=== PATIENT | female | born 1985 | race Native Hawaiian/Other Pacific Islander ===

== ENCOUNTER 2017-01-27 19:12 | Emergency (ER) | payer OTHER ==
[2017-01-27 19:20] VITALS: TEMP 97.9
[2017-01-27] MEDS ORDERED: Sodium Chloride 0.9% 500 ML IV STA (19:33)
[2017-01-27 20:00] LABS: ABG ALLEN TEST YES; ARTERIAL BLOOD GAS HCO3 23.7 mmol/L (21-28); ARTERIAL BLOOD GAS PO2 82 mm/Hg (80-100)
[2017-01-27 20:05] LABS: ALB/GLOB RATIO 1.2 (1.0-2.1); ALKALINE PHOSPHATASE 91 U/L (38-126); ALT/SGPT 41 U/L (9-52); AST/SGOT 28 U/L (14-36); BILIRUBIN,TOTAL 0.4 mg/dl (0.2-1.3); BLOOD UREA NITROGEN 8 mg/dl (7-17); CALCIUM 8.9 mg/dL (8.4-10.2); CARBON DIOXIDE 25 mmol/L (22-30); CHLORIDE 107 mmol/L (98-107); GFR AFRICAN-AMERICAN > 60; GLUCOSE,RANDOM 93 mg/dL (65-105); POTASSIUM 4.3 MMOL/L (3.6-5.0); SODIUM 142 mmol/l (132-148); TOTAL PROTEIN 7.5 G/DL (6.3-8.2)
--- NOTE | 2017-01-27 20:10 | ED PDOC ---
HPI: Chest Pain Time Seen by Provider: 01/27/17 19:23 Chief Complaint (Nursing): Chest Pain Chief Complaint (Provider): Chest Pain History Per: Patient History/Exam Limitations: no limitations Onset/Duration Of Symptoms: Hrs (since this morning), Waxing/Waning (throughout the day) Current Symptoms Are (Timing): Still Present Quality: "Pain" Associated Symptoms: denies: Nausea, Diaphoresis, Syncope Exacerbating Factors: Turning Additional Complaint(s): 31 year old female presents to ED with complaints of left sided chest pain since this morning and has a past medical history of pulmonary embolism and DVT in 2013. Notes that pain radiates to the back and waxes/wanes throughout the day. States that she has had severe body aches when waking up that wanes during the day and returns at night for a few days. Notes that today was the first day of chest pain. (-) SOB, cough, congestion, abdominal pain, calf swelling, leg pain, or edema. Confirms taking Nexium and Naproxen earlier today with no relief. Also notes having right leg pain a few weeks go in the same leg that had DVT. No numbness, tingles. Of note: Patient's pulse ox level is 100 in ED room. PCP: None - Risk Factors PE Risk Factors: Pos: Previous DVT, Previous PE Past Medical History Reviewed: Historical Data, Nursing Documentation, Vital Signs Vital Signs: Last Vital Signs Temp 97.9 F 01/27/17 19:16 Pulse 66 01/27/17 22:53 Resp 16 01/27/17 19:16 BP 143/99 H 01/27/17 19:16 Pulse Ox 92 L 01/27/17 22:53 - Medical History PMH: Deep Vein Thrombosis, Pulmonary Embolism (May 2014) Denies: No Chronic Diseases - Surgical History Surgical History: No Surg Hx - Family History Family History: States: Unknown Family Hx - Living Arrangements Living Arrangements: With Family - Social History Current smoker - smoking cessation education provided: No Ex-Smoker (has not smoked in the last 12 months): No Alcohol: None Drugs: Denies - Allergies Allergies/Adverse Reactions: Allergies Allergy/AdvReac Type Severity Reaction Status Date / Time No Known Allergies Allergy Verified 01/27/17 19:16 Curb-65 Severity Score - CURB-65 Severity Score Confusion: No Bun >19mg/dl (>7mmol/L): No Respiratory Rate greater than/equal to 30: No Systolic BP <90 or Diastolic BP less than/equal 60mmHg: No Age >64: No Curb-65 Score: 0 Percentage 30-day mortality: 0.6% Review of Systems ROS Statement: Except As Marked, All Systems Reviewed And Found Negative ENT: Negative for: Nose Congestion Cardiovascular: Positive for: Chest Pain (left sided) Respiratory: Negative for: Cough, Shortness of Breath Gastrointestinal: Negative for: Abdominal Pain Musculoskeletal: Positive for: Back Pain (chest pain radiated to back pain), Leg Pain (gone now) Physical Exam - Reviewed Nursing Documentation Reviewed: Yes Vital Signs Reviewed: Yes - Physical Exam Appears: Positive for: Non-toxic, No Acute Distress Head Exam: Positive for: ATRAUMATIC Skin: Positive for: Normal Color, Warm, Dry Eye Exam: Positive for: Normal appearance, EOMI, PERRL ENT: Positive for: Normal ENT Inspection. Negative for: Nasal Congestion, Pharyngeal Erythema, Tonsillar Exudate Neck: Positive for: Normal, Painless ROM, Supple Cardiovascular/Chest: Positive for: Regular Rate, Rhythm. Negative for: Murmur Respiratory: Positive for: Normal Breath Sounds. Negative for: Respiratory Distress (Patient's Pulse Ox is 100 in ED room) Pulses-Dorsalis Pedis (L): 2+ Pulses-Dorsalis Pedis (R): 2+ Gastrointestinal/Abdominal: Positive for: Soft. Negative for: Normal Exam, Tenderness Back: Positive for: Normal Inspection. Negative for: L CVA Tenderness, R CVA Tenderness Extremity: Positive for: Normal ROM. Negative for: Tenderness, Calf Tenderness (no leg pain or calf swelling), Deformity Neurologic/Psych: Positive for: Alert, Oriented. Negative for: Motor/Sensory Deficits - Laboratory Results Result Diagrams: 01/27/17 19:30 01/27/17 19:30 Interpretation Of Abn Labs: no acute - ECG ECG Rhythm: Positive for: Normal QRS, Normal ST Segment, Sinus Rhythm. Negative for: ST/T Changes Rate: 66 O2 Sat by Pulse Oximetry: 92 - Radiology X-Ray: Interpreted by Me, Viewed By Me X-Ray Interpretation: No Acute Disease - CT Scan/US ct Other Rad Studies (CT/US): Read By Radiologist Other Rad Interpretation: no pe; atelectasis RUL - Progress ED Course And Treament: 2311: Stable. AAOx3. Pain still present in back, feels stiffness there. Will give valium in ER and dc. Pt. to fu with clinic or get pcp to see in next few days. Will have a [facility] follow to help identify pt. status and get further testing/imaging/management/specialist evaluation as needed. Medical Decision Making Medical Decision Makin Initial impression: chest pain evaluation Initial plan: * ABG * CT ANGIO CHEST * EKG * Labs * Trop I * PTT/PT * CXR * NS IV * US DUPLEX LOWER EXTRM VEIN BILAT 2109 US FINDINGS: Right deep veins: Unremarkable. No DVT in the right common femoral, femoral, proximal deep femoral or popliteal veins. The veins are compressible with normal color flow and augmentation. Right superficial veins: Unremarkable. No thrombus in the visualized right greater saphenous vein. Left deep veins: Unremarkable. No DVT in the left common femoral, femoral, proximal deep femoral or popliteal veins. The veins are compressible with normal color flow and augmentation. Left superficial veins: Unremarkable. No thrombus in the visualized left greater saphenous vein. Soft tissues: No acute findings. No popliteal cyst. IMPRESSION: Negative bilateral lower extremity venous duplex exam without evidence of deep venous thrombosis 2251 CT FINDINGS Pulmonary arteries: The main pulmonary artery measures 23 mm. No pulmonary embolism is identified. Aorta: The ascending thoracic aorta measures 27 mm. No gross or obvious dissection is identified distal to the mid arch. Artifact and image degradation precludes detailed evaluation of the ascending thoracic aorta. Lungs: Minimal atelectasis and possible minimal infiltrate in the posterior right upper lobe with slight retraction of the adjacent superior right major fissure. No mass. Pleural space: Unremarkable. No significant effusion. No pneumothorax. Heart: Unremarkable. No cardiomegaly. No significant pericardial effusion. No evidence of RV dysfunction. Mediastinum: Induration of anterior mediastinum consistent with some residual thymic tissue. Bones/joints: No acute fracture. No dislocation. Soft tissues: Unremarkable. Lymph nodes: Unremarkable. No enlarged lymph nodes. Gallbladder and bile ducts: The gallbladder is contracted with no stones. IMPRESSION: 1. Minimal atelectasis and possible minimal infiltrate in the posterior right upper lobe. 2. Otherwise negative CTA chest. No pulmonary embolism is identified. Scribe Attestation: Documented by Florencia Goldberg acting as a scribe for Leonidas Sandoval MD. MD Good Attestation: All medical record entries made by the Latisha were at my direction and personally dictated by me. I have reviewed the chart and agree that the record accurately reflects my personal performance of the history, physical exam, medical decision making, and the department course for this patient. I have also personally directed, reviewed, and agree with the discharge instructions and disposition. Disposition - Clinical Impression Clinical Impression: Chest pain, Back pain - Patient ED Disposition Is Patient to be Admitted: No Counseled Patient/Family Regarding: Studies Performed, Diagnosis, Need For Followup - Disposition Referrals: [facility] [Outside] - 01/28/17 Disposition: Routine/Home Disposition Time: 23:14 Condition: STABLE Additional Instructions: Return if not better in 3 days. Instructions: Chest Pain (ED), Back Pain (ED) Forms: [facility] (Danish)
[2017-01-27 20:26] LABS: PARTIAL THROMBOPLASTIN TIME 29.3 Seconds (25.6-37.1)
[2017-01-27 20:45] LABS: BASO % 0.7 % (0.0-2.0); EOS # 0.3 K/uL (0.0-0.7); EOS % 5.1 % (0.0-4.0); HEMATOCRIT 40.3 % (34.0-47.0); LYMPH # 2.3 K/uL (1.0-4.3); LYMPH % 36.1 % (20.0-40.0); MEAN CELL VOLUME 89.1 fl (81.0-99.0); MEAN CORPUSCULAR HEMOGLOBIN 29.7 pg (27.0-31.0); MEAN CORPUSCULAR HGB CONC 33.3 g/dL (33.0-37.0); MEAN PLATELET VOLUME 8.8 fl (7.2-11.7); MONO # 0.4 K/uL (0.0-0.8); MONO % 6.2 % (0.0-10.0); NEUT # 3.3 K/uL (1.8-7.0); NEUT % 51.9 % (50.0-75.0); NRBC % 0.1 % (0.0-0.0); RED CELL DISTRIBUTION WIDTH 13.1 % (11.5-14.5); WHITE BLOOD COUNT 6.4 K/uL (4.8-10.8)
[2017-01-27] MEDS ORDERED: Iohexol 300 100 ML IJ ONE (20:49)
[2017-01-27] MEDS ORDERED: Sodium Chloride 0.9% 50 ML IV ONE (20:50)
[2017-01-27] MEDS ORDERED: Iodixanol 320 MG/ML 100 ML BOTTLE IV ONE (20:50)
[2017-01-27 23:28] VITALS: BP 125/89; PULSE 62; RESP 18; O2SAT 100
[2017-01-28] MEDS ORDERED: DiphenhydrAMINE 50 mg/ml Inj ONE (09:26)
--- NOTE | 2017-01-28 10:18 | US ---
PROCEDURE: Bilateral lower extremity venous duplex Doppler. HISTORY: r/o dvt COMPARISON: None available. TECHNIQUE: Bilateral common femoral, superficial femoral, popliteal and posterior tibial veins were evaluated. Flow was assessed with color Doppler, compressibility, assessment of phasic flow and augmentation response. FINDINGS: COMMON FEMORAL VEIN: Right CFV: Unremarkable. Left CFV: Unremarkable. SUPERFICIAL FEMORAL VEIN: Right SFV: Unremarkable. Left SFV: Unremarkable. POPLITEAL VEIN: Right Popliteal: Unremarkable. Left Popliteal: Unremarkable. POSTERIOR TIBIAL VEIN: Right PTV: Unremarkable. Left PTV: Unremarkable. OTHER FINDINGS: None. IMPRESSION: No evidence of deep venous thrombosis. Preliminary impression was provided by virtual radiologic.
--- NOTE | 2017-01-28 11:34 | CT ---
PROCEDURE: CT Chest with contrast (Pulmonary Angiogram) HISTORY: chest pain COMPARISON: None available. TECHNIQUE: Axial computed tomography images were obtained of the chest in the pulmonary arterial phase of enhancement. Coronal and sagittal reformatted images were created and reviewed. Intravenous contrast dose: 99 cc Omnipaque 300 contrast material Radiation dose: Total exam DLP = mGy-cm. This CT exam was performed using one or more of the following dose reduction techniques: Automated exposure control, adjustment of the mA and/or kV according to patient size, and/or use of iterative reconstruction technique. Radiation dose. Total DLP = 425.76 mGy-cm. FINDINGS: PULMONARY ARTERIES: The visualized portions of the pulmonary trunk, right and left main, lobar, segmental and proximal subsegmental branches of the pulmonary arteries are patent without obvious filling defects seen to suggest acute pulmonary embolus. Pulmonary trunk measures approximately 2.2 cm. AORTA: Ascending thoracic aorta measures approximately 3 cm and descending thoracic aorta measures approximately 2.1 cm. No evidence of aortic dissection. LUNGS: No evidence of focal consolidation. There is a elliptical shaped approximately 10 mm nodular density within the posterior aspect right upper lobe bordering the fissure that exhibits a somewhat stellate appearing borders extending to the pleural surface medially and posteriorly. . Some localized pleural thickening all also noted along posteromedially. Some linear scarring and possibly some atelectasis surrounds this presumed postinflammatory scarring. Note however that the possibility of a scar carcinoma would be less likely in this age group though not completely excluded. In addition, there is a small approximately 6.5 mm nodule within one of the stellate arms superiorly and posterior in location. These findings are also felt to represent post inflammatory scarring however recommend follow-up CT scan in 3 months to assess stability and exclude aggressive lesion including but not limited to malignancy. . Mild presumed chronic inflammatory pleural thickening right posterior sulcus with some minor localized pleural thickening along the posterior aspect lower lobe slightly more superiorly located. Some minor chronic pleural thickening changes also seen in the right lower lobe. Small subpleural 4 mm nodular density posterior superior aspect left lower lobe. PLEURAL SPACES: Unremarkable. No effusion or pneumothorax. HEART: Heart size within range of normal. No evidence of significant pericardial effusion. LYMPH NODES: Few small nonspecific mediastinal lymph nodes are present none of which appear pathologically enlarged. No significant hilar adenopathy. BONES, CHEST WALL: Unremarkable. No fracture or destructive lesion OTHER FINDINGS: Tiny hiatal hernia. Central airways are midline and patent. No intraluminal lesions seen. IMPRESSION: No evidence of acute central pulmonary embolus. There is a elliptical shaped approximately 10 mm nodular density within the posterior aspect right upper lobe bordering the fissure that exhibits a somewhat stellate appearing borders extending to the pleural surface medially and posteriorly. . Some localized pleural thickening all also noted along posteromedially. Some linear scarring and possibly some atelectasis surrounds this presumed postinflammatory scarring. Note however that the possibility of a scar carcinoma would be less likely in this age group though not completely excluded. In addition, there is a small approximately 6.5 mm nodule within one of the stellate arms superiorly and posterior in location. These findings are also felt to represent post inflammatory scarring however recommend follow-up CT scan in 3 months to assess stability and exclude aggressive lesion including but not limited to malignancy. . There are also scattered areas of pleural thickening with a small 4 mm subpleural nodule left lower lobe. . Case also discussed with emergency room GEM Christopher at approximately 11:31 a.m. with written down and read back verification
--- NOTE | 2017-01-28 14:54 | RAD ---
HISTORY: pain COMPARISON: Note that this study was read in conjunction with subsequent CTA of the chest FINDINGS: LUNGS: No acute consolidation. Previously noted nodular densities within the right upper lobe are not appreciated on this study. Please refer to of the CTA of the chest and corresponding report for additional details, findings and recommendations. PLEURA: No significant pleural effusion identified, no pneumothorax apparent. CARDIOVASCULAR: Normal. OSSEOUS STRUCTURES: No significant abnormalities. VISUALIZED UPPER ABDOMEN: Normal. OTHER FINDINGS: None. IMPRESSION: No acute consolidation. Nodular densities right upper lobe poorly seen. Please refer to CTA of the chest and corresponding report for additional details, findings and recommendations (note that the recommendation made to assess nodular densities with CT scan
--- NOTE | 2017-01-29 00:14 | CARD ---
APPROVED REPORT EKG Measurement Heart [id number] NM [id number] [id number] <Conclusion> Normal sinus rhythm Normal ECG
== END 2017-01-27 23:40 | disposition home or self-care (01) ==
LOC: H.ER 19:12
DX: R07.89 Other chest pain (principal); Z86.711 Personal history of pulmonary embolism; Z86.718 Personal history of other venous thrombosis and embolism

== ENCOUNTER 2017-01-28 08:58 | Emergency (ER) | payer OTHER ==
[2017-01-28] MEDS ORDERED: DiphenhydrAMINE 50 mg/ml Inj IM STA (09:13)
--- NOTE | 2017-01-28 09:28 | ED PDOC ---
HPI: Allergic Reaction Time Seen by Provider: 01/28/17 09:07 Chief Complaint (Nursing): Allergic Reaction Chief Complaint (Provider): allergic reaction History Per: Patient History/Exam Limitations: no limitations Home/EMS Treatment: None Additional Complaint(s): Carey Alva is a 31 year old female, with a previous medical history of deep vain thrombosis and pulmonary embolism, who presents to the ED with complaints of itchiness to the face, neck and upper back. Patient denies any difficulty breathing, swallowing, rash to the legs/trunk, history of prior allergies or taking any medications at home. Patient was seen last night for chest pain and back pain where she received a CT scan of the chest with IV contrast and morphine. Patient reports symptoms of chest pain and back pain have since resolved. PMD: none provided Past Medical History Reviewed: Historical Data, Nursing Documentation, Vital Signs - Medical History PMH: Deep Vein Thrombosis, Pulmonary Embolism (May 2014) - Surgical History Other surgeries: laparoscopy (done in [place]) - Family History Family History: States: Unknown Family Hx - Home Medications Home Medications: Ambulatory Orders Medication Instructions Recorded DiphenhydrAMINE [Benadryl] 25 mg PO Q6 PRN #12 cap 01/28/17 Prednisone 50 mg PO DAILY #4 tab 01/28/17 - Allergies Allergies/Adverse Reactions: Allergies Allergy/AdvReac Type Severity Reaction Status Date / Time No Known Allergies Allergy Verified 01/28/17 09:07 Review of Systems ROS Statement: Except As Marked, All Systems Reviewed And Found Negative ENT: Negative for: Throat Swelling Respiratory: Negative for: Shortness of Breath Skin: Positive for: Rash (to the face, neck and upper back ) Physical Exam - Reviewed Nursing Documentation Reviewed: Yes Vital Signs Reviewed: Yes - Physical Exam Appears: Positive for: Well, Non-toxic, No Acute Distress Head Exam: Positive for: ATRAUMATIC, NORMAL INSPECTION, NORMOCEPHALIC Skin: Positive for: Warm, Dry, Rash (small urticaria noted on bilateral ears along erythroderma to the face and neck with blanching ) Eye Exam: Positive for: EOMI, Normal appearance, PERRL ENT: Positive for: Normal ENT Inspection Neck: Positive for: Normal, Painless ROM, Supple Cardiovascular/Chest: Positive for: Regular Rate, Rhythm Respiratory: Positive for: CNT, Normal Breath Sounds Gastrointestinal/Abdominal: Positive for: Normal Exam, Bowel Sounds, Soft Extremity: Positive for: Normal ROM Neurologic/Psych: Positive for: Alert, Oriented Disposition - Clinical Impression Clinical Impression: Allergic reaction Doctor Will See Patient In The: Office Counseled Patient/Family Regarding: Studies Performed, Diagnosis, Need For Followup, Rx Given - Disposition Referrals: Remigio Velez MD [Staff Provider] - Disposition: Routine/Home Disposition Time: 10:43 Condition: STABLE Additional Instructions: Caution when using morphine, valium or contrast dye. Take benadryl 25mg orally every 6hrs today, then every 6hrs tomorrow as needed. Use prednisone 50mg orally today if symptoms worsen. Prescriptions: DiphenhydrAMINE [Benadryl] 25 mg PO Q6 PRN #12 cap PRN Reason: Itching / Pruritus Prednisone 50 mg PO DAILY #4 tab Instructions: General Allergic Reaction (ED) MDMA - Impression/Plan/Differential Dx Note:: Initial Impression: Allergic reaction. Reactions could be due to contrast or morphine but more likely the contrast given its delayed reaction. Initial Plan: * Benadryl 50 mg IM * reevaluation 10:40 Upon provider reevaluation patient is feeling better with resolved symptoms and no itching or shortness of breath. Patient is medically stable, and requires no further treatment in the ED at this time. Patient will be discharged home with Rx. Counseling was provided and all questions were answered regarding diagnosis and need for follow up with an cloth shrinking machine operator. There is agreement to discharge plan. Return if symptoms persist or worsen. Scribe Attestation: Documented by Katt Pedraza, acting as a scribe for Guy Lambert DO. Provider Scribe Attestation: All medical record entries made by the Scribe were at my direction and personally dictated by me. I have reviewed the chart and agree that the record accurately reflects my personal performance of the history, physical exam, medical decision making, and the department course for this patient. I have also personally directed, reviewed, and agree with the discharge instructions and disposition.
[2017-01-28 10:30] VITALS: RESP 18; TEMP 97
[2017-01-28 11:04] VITALS: BP 134/82; PULSE 72; O2SAT 100
== END 2017-01-28 11:00 | disposition home or self-care (01) ==
LOC: H.ER 08:58
DX: T78.40XA Allergy, unspecified, initial encounter (principal)